=== PATIENT | female | born 1940 | race American Indian/Alaskan Native ===

== ENCOUNTER 2020-10-01 13:31 | Inpatient (IN) | payer MEDICARE ==
[2020-10-01 14:44] LABS: Basophils % (Auto) 0.8 % (0.0-1.8); Eosinophils # (Auto) 0.1 K/mm3 (0.0-0.4); Eosinophils % (Auto) 4.5 % (0.0-4.3); Hematocrit 38.4 % (30.3-42.9); Hemoglobin 13.4 gm/dl (10.1-14.3); Lymphocytes # (Auto) 1.3 K/mm3 (1.2-5.4); Lymphocytes % (Auto) 39.1 % (13.4-35.0); Mean Corpuscular HGB Conc 35 % (30-34); Mean Corpuscular Volume 95 fl (79-97); Monocytes # (Auto) 0.3 K/mm3 (0.0-0.8); Monocytes % (Auto) 8.8 % (0.0-7.3); Platelet Count 185 K/mm3 (140-440); Red Blood Count 4.05 M/mm3 (3.65-5.03); Red Cell Distribution Width 13.4 % (13.2-15.2)
[2020-10-01 14:47] LABS: Partial Thromboplastin Time 29.4 Sec. (24.2-36.6)
[2020-10-01 14:50] LABS: BUN/Creatinine Ratio 13; Blood Urea Nitrogen 10 mg/dL (7-17); Calcium 9.2 mg/dL (8.4-10.2); Hemolysis Index 5
--- NOTE | 2020-10-01 17:16 | Emergency Department Report ---
ED Neuro Deficit HPI - General Chief Complaint: Neuro Symptoms/Deficit Stated Complaint: SLURRED SPEECH/HEADACHE Time Seen by Provider: 10/01/20 16:58 Source: patient Mode of arrival: Ambulatory Limitations: No Limitations - History of Present Illness Initial Comments: Patient is 80 years old female with no significant past medical history according to the patient report. Patient brought by family member for evaluation of confusion since last night, unknown time of onset. Patient is alert and slightly confused but she is able to answer questions. Patient stated that she has been having a headache for the last few days. She also reported that she had a fall few weeks ago. Patient denied any focal weakness, numbness or tingling sensation. Patient also denied any speech abnormality. GCS is 14. -: unknown Location: speech Presenting Symptoms: Present: Altered Mental Status Associated Symptoms: confusion - Related Data Allergies/Adverse Reactions: Allergies Allergy/AdvReac Type Severity Reaction Status Date / Time No Known Allergies Allergy Verified 10/01/20 13:40 ED Review of Systems ROS: Stated complaint: SLURRED SPEECH/HEADACHE Other details as noted in HPI Comment: All other systems reviewed and negative Constitutional: denies: chills, fever Respiratory: denies: cough, shortness of breath, SOB with exertion, SOB at rest Cardiovascular: denies: chest pain, palpitations Gastrointestinal: nausea, vomiting. denies: abdominal pain Musculoskeletal: denies: back pain Neurological: headache. denies: weakness, numbness, paresthesias, confusion ED Neuro Physical Exam - General Limitations: No Limitations General appearance: alert, in no apparent distress Suspected Stroke: Yes - Head Head exam: Present: atraumatic, normocephalic, normal inspection - Eye Eye exam: Present: normal appearance, PERRL, EOMI - ENT ENT exam: Present: normal exam, normal orophraynx, mucous membranes moist - Neck Neck exam: Present: normal inspection, full ROM. Absent: tenderness, meningismus - Respiratory Respiratory exam: Present: normal lung sounds bilaterally - Cardiovascular Cardiovascular Exam: Present: regular rate, normal rhythm, normal heart sounds - GI/Abdominal GI/Abdominal exam: Present: soft, normal bowel sounds. Absent: distended, tenderness, guarding, rebound, rigid, organomegaly, mass, bruit, pulsatile mass, hernia - Extremities Exam Extremities exam: Present: normal inspection, full ROM, normal capillary refill. Absent: tenderness - Back Exam Back exam: Present: normal inspection, full ROM. Absent: CVA tenderness (R), CVA tenderness (L) - Neurological Exam Neurological exam: Present: alert, altered, CN II-XII intact, normal gait, reflexes normal. Absent: motor sensory deficit - NIHSS Assessment Interval: Baseline 1a. Level of Consciousness: alert/keenly responsive 1b. LOC Questions: answers both correctly 1c. LOC Commands: performs tasks correctly 2. Best Gaze: normal 3. Visual: no visual loss 4. Facial Palsy: normal symmetrical movement 5b. Motor Arm Right: no drift 5a. Motor Arm Left: no drift 6a. Motor Leg Left: no drift 6b. Motor Leg Right: no drift 7. Limb Ataxia: absent 8. Sensory: normal 9. Best Language: no aphasia 10. Dysarthria: normal 11. Extinction/Inattention: no abnormality Total Score: 0 Stroke Severity: No Stroke Symptoms - Psychiatric Psychiatric exam: Present: normal mood - Skin Skin exam: Present: warm, dry, intact, normal color ED Course Vital Signs 10/01/20 10/01/20 10/01/20 13:40 14:03 19:00 Temperature 97.6 F 98.5 F Pulse Rate 72 61 70 Respiratory 20 16 16 Rate Blood Pressure 149/76 157/76 Blood Pressure 136/66 [Right] O2 Sat by Pulse 97 99 Oximetry 10/01/20 10/01/20 10/01/20 19:32 19:34 19:38 Temperature 97.7 F Pulse Rate 72 Respiratory 16 16 Rate Blood Pressure 138/83 Blood Pressure 138/83 [Right] O2 Sat by Pulse 98 Oximetry 10/01/20 10/01/20 10/01/20 19:46 20:02 20:16 Temperature Pulse Rate 76 96 H 65 Respiratory 20 Rate Blood Pressure 143/120 146/66 131/66 Blood Pressure [Right] O2 Sat by Pulse Oximetry - Lab Data Result diagrams: 10/01/20 14:10 10/01/20 14:10 Lab Results 10/01/20 10/01/20 10/01/20 Range/Units 13:46 14:10 14:10 WBC 3.3 L (4.5-11.0) K/mm3 RBC 4.05 (3.65-5.03) M/mm3 Hgb 13.4 (10.1-14.3) gm/dl Hct 38.4 (30.3-42.9) % MCV 95 (79-97) fl MCH 33 H (28-32) pg MCHC 35 H (30-34) % RDW 13.4 (13.2-15.2) % Plt Count 185 (140-440) K/mm3 Lymph % (Auto) 39.1 H (13.4-35.0) % Craig % (Auto) 8.8 H (0.0-7.3) % Eos % (Auto) 4.5 H (0.0-4.3) % Baso % (Auto) 0.8 (0.0-1.8) % Lymph # (Auto) 1.3 (1.2-5.4) K/mm3 Craig # (Auto) 0.3 (0.0-0.8) K/mm3 Eos # (Auto) 0.1 (0.0-0.4) K/mm3 Baso # (Auto) 0.0 (0.0-0.1) K/mm3 Seg Neutrophils % 46.8 (40.0-70.0) % Seg Neutrophils # 1.5 L (1.8-7.7) K/mm3 PT 13.7 (12.2-14.9) Sec. INR 1.00 (0.87-1.13) APTT 29.4 (24.2-36.6) Sec. Thrombin Time (15.1-19.6) Sec. Sodium (137-145) mmol/L Potassium (3.6-5.0) mmol/L Chloride (98-107) mmol/L Carbon Dioxide (22-30) mmol/L Anion Gap mmol/L BUN (7-17) mg/dL Creatinine (0.6-1.2) mg/dL Estimated GFR ml/min BUN/Creatinine Ratio % Glucose (65-100) mg/dL POC Glucose 104 (70-105) mg/dL Calcium (8.4-10.2) mg/dL Troponin T (0.00-0.029) ng/mL 10/01/20 10/01/20 Range/Units 14:10 14:10 WBC (4.5-11.0) K/mm3 RBC (3.65-5.03) M/mm3 Hgb (10.1-14.3) gm/dl Hct (30.3-42.9) % MCV (79-97) fl MCH (28-32) pg MCHC (30-34) % RDW (13.2-15.2) % Plt Count (140-440) K/mm3 Lymph % (Auto) (13.4-35.0) % Craig % (Auto) (0.0-7.3) % Eos % (Auto) (0.0-4.3) % Baso % (Auto) (0.0-1.8) % Lymph # (Auto) (1.2-5.4) K/mm3 Craig # (Auto) (0.0-0.8) K/mm3 Eos # (Auto) (0.0-0.4) K/mm3 Baso # (Auto) (0.0-0.1) K/mm3 Seg Neutrophils % (40.0-70.0) % Seg Neutrophils # (1.8-7.7) K/mm3 PT (12.2-14.9) Sec. INR (0.87-1.13) APTT (24.2-36.6) Sec. Thrombin Time 17.7 (15.1-19.6) Sec. Sodium 142 (137-145) mmol/L Potassium 4.5 (3.6-5.0) mmol/L Chloride 105.1 (98-107) mmol/L Carbon Dioxide 28 (22-30) mmol/L Anion Gap 13 mmol/L BUN 10 (7-17) mg/dL Creatinine 0.8 (0.6-1.2) mg/dL Estimated GFR > 60 ml/min BUN/Creatinine Ratio 13 % Glucose 95 (65-100) mg/dL POC Glucose (70-105) mg/dL Calcium 9.2 (8.4-10.2) mg/dL Troponin T < 0.010 (0.00-0.029) ng/mL - EKG Data -: EKG Interpreted by Id EKG shows normal: sinus rhythm Rate: normal Interpretation: no acute changes - Radiology Data Radiology results: report reviewed - Medical Decision Making Patient is 80 years old female with no significant past medical history acc ording to the patient report. Patient brought by family member for evaluation of confusion since last night, unknown time of onset. Patient is alert and slightly confused but she is able to answer questions. Patient stated that she has been having a headache for the last few days. She also reported that she had a fall few weeks ago. Patient denied any focal weakness, numbness or tingling sensation. Patient also denied any speech abnormality. GCS is 14. Patient vital signs remained stable. CT brain showed a 1 cm time 1.5 cm intracerebral hemorrhage. I discussed the patient with Dr. Paulino Salazar, neurosurgeon on-call. He advised to admit the patient to ICU with neuro check every 2 hours. He advised to keep blood pressure less than 140 systolic. He also advised to repeat CT brain without contrast in 6-hour from the initial test and he will see the patient in the ICU. I discussed the patient with Dr. Lorenz, he agreed to admit the patient to medical service for further management. Critical Care Time: Yes Critical care time in (mins) excluding proc time.: 30 Critical care attestation.: If time is entered above; I have spent that time in minutes in the direct care of this critically ill patient, excluding procedure time. ED Disposition Clinical Impression: Intracerebral hemorrhage Disposition: 09 ADMITTED INPATIENT Is pt being admited?: Yes Condition: Stable Referrals: PRIMARY CARE, [Primary Care Provider] - 3-5 Days
--- NOTE | 2020-10-01 17:16 | Cat Scan Report ---
NONENHANCED CT SCAN OF THE HEAD: INDICATION / CLINICAL INFORMATION: 80 years Female; neuro deficits <6hrs or sx present upon awakening PT UNABLE TO GIVE HX. TECHNIQUE: Routine CT head without contrast. All CT scans at this location are performed using CT dos e reduction for ALARA by means of automated exposure control. COMPARISON: None. FINDINGS: BRAIN / INTRACRANIAL CONTENTS: Abnormal CT scan 1 cm (sagittal) by 1.5 cm (transverse and vertical) sized acute intracerebral hemorrhage in the later al left precentral gyrus with the surrounding vasogenic edema; Unlikely to be from hypertensive hemorrhage; diagnostic possibilities are amyloid angiopathy, peritum oral hemorrhage, hemorrhage from cortical venous thromboses Extensive periventricular confluent low-attenuation areas due to chronic small vessel disease; incide ntal left choroidal fissure cyst CRANIOCERVICAL JUNCTION: No significant abnormality. ORBITS: No significant abnormality of visualized orbits. SINUSES / MASTOIDS: No significant abnormality of the visualized paranasal sinuses or mastoid air nieves ls. ADDITIONAL FINDINGS: None. IMPRESSION: 1 cm x 1.5 cm sized intracerebral hemorrhage in the lateral left precentral gyrus with surrounding va sogenic edema CRITICAL RESULT: Time of Discovery (CORPORATE MANAGER/CDT): 4:09 PM Time of Communication (CORPORATE MANAGER/CDT): 4:11 PM Licensed Practitioner Receiving Report: ER physician Read-Back Performed: Yes. Signer Name: Chayito Orourke MD Signed: 10/01/2020 5:11 PM Workstation Name: [id number]
--- NOTE | 2020-10-01 18:31 | Cat Scan Report ---
CTA HEAD WITH CONTRAST HISTORY: Focal hemorrhage in the lateral left precentral gyrus COMPARISON: None. TECHNIQUE: Routine non-contrast CT Head, CTA of the head and post-contrast CT Head are performed. 3-D /MIP reformats postprocessed. All CT scans at this location are performed using CT dose reduction for ALARA by means of automated exposure control CONTRAST: 100 ml of Omnipaque 350 FINDINGS: CTA Head: Intracranial vertebral arteries: No significant abnormality. Basilar artery: No significant abnormality. Posterior cerebral arteries: No significant abnormality. Intracranial internal carotid arteries: No significant abnormality. Anterior cerebral arteries: No significant abnormality. Middle cerebral arteries: No significant abnormality. Intracerebral hemorrhage in the left lateral precentral gyrus: No adjacent prominent arteries are fee ding remains; this would exclude underlying arteriovenous malformation Dural venous sinuses:Not optimally opacified. No significant abnormality. Additional findings: Empty sella IMPRESSION: 1. [place] and middle cerebral artery trifurcation normal No arterial feeders are prominent venous drainage from the left lateral frontal intracerebral hemorrh age Signer Name: Chayito Orourke MD Signed: 10/01/2020 6:26 PM Workstation Name: [id number]
[2020-10-01] MEDS ORDERED: PROMETHAZINE 25 MG RECT SUPP PR PRN (22:27)
[2020-10-01] MEDS ORDERED: ACETAMINOPHEN 325 MG TAB PO PRN ×2 (22:27)
[2020-10-01] MEDS ORDERED: ONDANSETRON 4 MG/2 ML INJ IV PRN (22:27)
[2020-10-01] MEDS ORDERED: ACETAMINOPHEN 650 MG RECT SUPP PR PRN (22:27)
[2020-10-01] MEDS ORDERED: MORPHINE 4 MG/1 ML INJ IV PRN ×2 (22:27)
[2020-10-01] MEDS ORDERED: MAGNESIUM HYDROXIDE (MOM) ORAL LIQD UDC PO PRN ×2 (22:27)
[2020-10-01] MEDS ORDERED: MORPHINE 2 MG/1 ML INJ IV PRN ×2 (22:27)
[2020-10-01] MEDS ORDERED: ALUM-MAG HYDROXIDE-SIMETHICONE 200-200-20MG/5ML ORAL LIQD 30 ML PO PRN (22:27)
--- NOTE | 2020-10-01 22:51 | History and Physical Report ---
History of Present Illness Date of examination: 10/01/20 Date of admission: 10/01/20 21:37 Chief complaint: Confusion Headache History of present illness: 80-year-old -[place] female with no significant past medical history brought in by family today for evaluation of confusion which started last night. Patient states that she has been having headache over the past few days. She denies any blurry vision, no nausea vomiting, no abdominal pain, no diaphoresis. Patient denies any fever or chills, denies any neck pain. She denies any difficulty with speech or swallowing. Denies any difficulty with gait. She denies any sick contacts and no recent travel. Denies any contact with anyone with COVID-19. Work-up in the emergency room today, CT scan of the head reveals a 1 cm x 1.5 cm sized intracerebral hemorrhage in the lateral left precentral gyrus with surrounding vasogenic edema. CTA of the head was essentially within normal limits. Neurosurgeon Dr. Jeffries has been consulted by the ER physician. Repeat CT scan of the head has been requested and patient will be followed up by the neurosurgeon. Past History Past Medical History: No medical history Past Surgical History: No surgical history Social history: no significant social history Family history: no significant family history Medications and Allergies Allergies Allergy/AdvReac Type Severity Reaction Status Date / Time No Known Allergies Allergy Verified 10/01/20 13:40 Active Meds: Active Medications Acetaminophen (Acetaminophen 325 Mg Tab) 650 mg PO Q4H PRN PRN Reason: Pain, Mild (1-3) Acetaminophen (Acetaminophen 650 Mg Rect Supp) 650 mg IA Q4H PRN PRN Reason: Pain, Mild (1-3) Acetaminophen (Acetaminophen 325 Mg Tab) 650 mg PO Q6H PRN PRN Reason: Pain MILD(1-3)/Fever >100.5/BULLARD Al Hydrox/Mg Hydrox/Simethicone (Alum-Mag Hydroxide-Simethicone [phone]/5ml Oral Liqd 30 Ml) 30 ml PO Q4H PRN PRN Reason: Indigestion Bisacodyl (Bisacodyl 10 Mg Rect Supp) 10 mg IA QDAY PRN PRN Reason: Constipation unrelieved by MOM Magnesium Hydroxide (Magnesium Hydroxide (Mom) Oral Liqd Udc) 30 ml PO Q4H PRN PRN Reason: Constipation Magnesium Hydroxide (Magnesium Hydroxide (Mom) Oral Liqd Udc) 30 ml PO Q4H PRN PRN Reason: Constipation Morphine Sulfate (Morphine 2 Mg/1 Ml Inj) 2 mg IV Q4H PRN PRN Reason: Pain, Moderate (4-6) Morphine Sulfate (Morphine 4 Mg/1 Ml Inj) 4 mg IV Q4H PRN PRN Reason: Pain , Severe (7-10) Morphine Sulfate (Morphine 2 Mg/1 Ml Inj) 2 mg IV Q4H PRN PRN Reason: Pain, Moderate (4-6) Morphine Sulfate (Morphine 4 Mg/1 Ml Inj) 4 mg IV Q4H PRN PRN Reason: Pain , Severe (7-10) Ondansetron HCl (Ondansetron 4 Mg/2 Ml Inj) 4 mg IV Q8H PRN PRN Reason: N/V unrelieved by Reglan Promethazine HCl (Promethazine 25 Mg Rect Supp) 25 mg IA Q6H PRN PRN Reason: Nausea And Vomiting Sodium Chloride (Sodium Chloride 0.9% 10 Ml Flush Syringe) 10 ml IV BID NATASHA Sodium Chloride (Sodium Chloride 0.9% 10 Ml Flush Syringe) 10 ml IV PRN PRN PRN Reason: LINE FLUSH Review of Systems Constitutional: no fever, no chills Ears, nose, mouth and throat: no nasal congestion, no sore throat Cardiovascular: no chest pain, no palpitations Respiratory: no cough, no shortness of breath, no wheezing Gastrointestinal: no abdominal pain, no nausea, no vomiting, no diarrhea Genitourinary Female: no flank pain, no dysuria, no hematuria Musculoskeletal: no neck pain, no low back pain Integumentary: no rash, no pruritis Neurological: no headaches, no confusion Psychiatric: no anxiety, no depression Endocrine: no polyphagia, no polydipsia, no polyuria, no nocturia Exam - Constitutional Vitals: Temp Pulse Resp BP Pulse Ox 97.7 F 66 13 126/63 98 10/01/20 19:34 10/01/20 22:30 10/01/20 22:30 10/01/20 22:30 10/01/20 19:38 General appearance: Present: no acute distress, well-nourished - EENT Eyes: Present: PERRL, EOM intact. Absent: scleral icterus ENT: hearing intact, clear oral mucosa, dentition normal - Neck Neck: Present: supple, normal ROM - Respiratory Respiratory effort: normal Respiratory: bilateral: CTA - Cardiovascular Rhythm: regular Heart Sounds: Present: S1 & S2. Absent: gallop, systolic murmur, diastolic murmur, rub, click - Extremities Extremities: no ischemia, pulses intact, pulses symmetrical, No edema, normal temperature, normal color, Full ROM Peripheral Pulses: within normal limits - Abdominal General gastrointestinal: Present: soft, non-tender, non-distended, normal bowel sounds. Absent: mass - Integumentary Integumentary: Present: clear, warm, dry, normal turgor. Absent: rash - Musculoskeletal Musculoskeletal: strength equal bilaterally - Psychiatric Psychiatric: appropriate mood/affect, intact judgment & insight, memory intact, cooperative - Neurologic Neurologic: CNII-XII intact, no focal deficits, moves all extremities HEART Score - HEART Score Troponin: Troponin T < 0.010 ng/mL (0.00-0.029) 10/01/20 14:10 Results - Labs CBC & Chem 7: 10/01/20 14:10 10/01/20 14:10 Labs: Abnormal lab results 10/01/20 Range/Units 14:10 WBC 3.3 L (4.5-11.0) K/mm3 MCH 33 H (28-32) pg MCHC 35 H (30-34) % Lymph % (Auto) 39.1 H (13.4-35.0) % Casey % (Auto) 8.8 H (0.0-7.3) % Eos % (Auto) 4.5 H (0.0-4.3) % Seg Neutrophils # 1.5 L (1.8-7.7) K/mm3 Assessment and Plan - Patient Problems (1) Intracerebral hemorrhage Current Visit: Yes Status: Acute Plan to address problem: Patient admitted into the intensive care unit. Neurochecks will be done every 2 hourly We will monitor blood pressure closely. Blood pressure systolic to be less than 140 mmHg. Patient will be followed up by neurosurgeon Dr. Jeffries. We will also appreciate neurology input. (2) DVT prophylaxis Current Visit: Yes Status: Acute Plan to address problem: Patient placed on sequential compression device. (3) Full code status Current Visit: Yes Status: Acute Plan to address problem: Patient is a full code.
[2020-10-02 06:50] LABS: Basophils % (Auto) 0.8 % (0.0-1.8); Eosinophils # (Auto) 0.2 K/mm3 (0.0-0.4); Hematocrit 37.9 % (30.3-42.9); Hemoglobin 13.1 gm/dl (10.1-14.3); Lymphocytes # (Auto) 1.3 K/mm3 (1.2-5.4); Lymphocytes % (Auto) 43.1 % (13.4-35.0); Mean Corpuscular HGB Conc 35 % (30-34); Mean Corpuscular Volume 95 fl (79-97); Monocytes # (Auto) 0.4 K/mm3 (0.0-0.8); Monocytes % (Auto) 11.9 % (0.0-7.3); Platelet Count 174 K/mm3 (140-440); Red Blood Count 4.01 M/mm3 (3.65-5.03); Red Cell Distribution Width 13.4 % (13.2-15.2)
[2020-10-02 06:58] LABS: INR 1.01 (0.87-1.13)
[2020-10-02 07:00] LABS: BUN/Creatinine Ratio 10; Blood Urea Nitrogen 8 mg/dL (7-17); Calcium 9.2 mg/dL (8.4-10.2); Hemolysis Index 2
--- NOTE | 2020-10-02 08:44 | Cat Scan Report ---
CT BRAIN: 10/02/2020 INDICATION / CLINICAL INFORMATION: INTRACEREBRAL BLEED- FOLLOW UP. COMPARISON: CT brain 10/01/2020 FINDINGS: BRAIN/INTRACRANIAL STRUCTURES: Unenhanced CT images of the brain were obtained and compared to the pr ior exam from 10/01/2020. There is been no change. Again seen is the area of sulcal hyperdensity in the high left frontal region, unchanged in appearanc e and extent. Underlying age-related atrophic changes and chronic white matter hypoattenuation is also again noted. There is no evidence of additional hemorrhage or mass. EXTRACRANIAL STRUCTURES: Unremarkable. IMPRESSION: No change when compared to 10/01/2020. All CT scans at this location are performed using dose reduction to ALARA by means of automated expos ure control. Signer Name: Dewayne Bernabe MD Signed: 10/02/2020 8:39 AM Workstation Name: [id number]
[2020-10-02] MEDS ORDERED: SENNOSIDES 8.6 MG TAB PO PRN (08:58)
[2020-10-02] MEDS ORDERED: DEXTROSE 50% IN WATER (25GM) 50 ML SYRINGE IV PRN (09:03)
[2020-10-02 11:25] LABS: Chol/HDL Ratio 2.13 %
--- NOTE | 2020-10-02 15:01 | Vascular Lab Report ---
VL carotid duplex BILAT INDICATION / CLINICAL INFORMATION: CVA COMPARISON: None available. FINDINGS: RIGHT CAROTID: - CCA velocity: 140 cm/sec. This was taken in a region of tortuosity and could be artifactual. - ICA peak systolic velocity: 82 cm/sec. - ICA/CCA PSV Ratio: Less than 2 Right Vertebral Artery: Antegrade flow. LEFT CAROTID: - CCA velocity: 122 cm/sec. - ICA peak systolic velocity: 84 cm/sec. - ICA/CCA PSV Ratio: Less than 2 Left Vertebral Artery: Antegrade flow. IMPRESSION: 1. No occlusion or hemodynamically significant stenosis of the bilateral carotid arteries. Velocity criteria are extrapolated from diameter data as defined by the Society of Radiologists in Ul trasound Consensus Conference, Radiology 2003; 229;340-346. NO STENOSIS (NORMAL) * Plaque = none; ICA PSV < 125 cm/sec; ICA/CCA PSV Ratio < 2.0 <50% STENOSIS * Plaque < 50%; ICA PSV < 125 cm/sec; ICA/CCA PSV Ratio < 2.0 50-69% STENOSIS * Plaque > 50%; ICA PSV = 125-230 cm/sec; ICA/CCA PSV Ratio = 2.0-4.0 >70% BUT <100% STENOSIS * Plaque > 50%; ICA PSV > 230 cm/sec; ICA/CCA PSV Ratio > 4.0 NEAR OCCLUSION * Plaque = visible lumen; ICA PSV = high/low/none; ICA/CCA PSV Ratio = variable TOTAL OCCLUSION * Plaque = no lumen; ICA PSV = none; ICA/CCA PSV Ratio = N/A Signer Name: Cameron Glass MD Signed: 10/02/2020 2:57 PM Workstation Name: [id number]
--- NOTE | 2020-10-02 17:26 | Consultation ---
History of Present Illness Consult date: 10/02/20 Reason for Consult: Intracerebral hemorrhage Chief complaint: headache History of present illness: Reggie Bear is a 80 y/o Female admitted to [facility] on yesterday for management of a newly discovered left intracerebral hemorrhage. She reportedly fell while walking in her yard (according to her). CT scan revealed a left frontal intraparenchymal hemorrhage. Follow up CTA was negative for vascular malformation. Presently, she denies significant headaches, nausea or vomiting. She is mostly interested in finding a phone right now. She is currently awaiting an inpatient bed. Past History Past Medical History: No medical history Past Surgical History: No surgical history Social history: no significant social history Family history: no significant family history Medications and Allergies Allergies Allergy/AdvReac Type Severity Reaction Status Date / Time No Known Allergies Allergy Verified 10/01/20 13:40 Active Meds: Active Medications Acetaminophen (Acetaminophen 650 Mg Rect Supp) 650 mg ID Q4H PRN PRN Reason: Pain, Mild (1-3) Acetaminophen (Acetaminophen 325 Mg Tab) 650 mg PO Q6H PRN PRN Reason: Pain MILD(1-3)/Fever >100.5/[place] Al Hydrox/Mg Hydrox/Simethicone (Alum-Mag Hydroxide-Simethicone [phone]/5ml Oral Liqd 30 Ml) 30 ml PO Q4H PRN PRN Reason: Indigestion Bisacodyl (Bisacodyl 10 Mg Rect Supp) 10 mg ID QDAY PRN PRN Reason: Constipation unrelieved by MOM Dextrose (Dextrose 50% In Water (25gm) 50 Ml Syringe) 50 ml IV Q30MIN PRN; Protocol PRN Reason: Hypoglycemia Magnesium Hydroxide (Magnesium Hydroxide (Mom) Oral Liqd Udc) 30 ml PO Q4H PRN PRN Reason: Constipation Morphine Sulfate (Morphine 4 Mg/1 Ml Inj) 4 mg IV Q4H PRN PRN Reason: Pain , Severe (7-10) Morphine Sulfate (Morphine 2 Mg/1 Ml Inj) 2 mg IV Q4H PRN PRN Reason: Pain, Moderate (4-6) Ondansetron HCl (Ondansetron 4 Mg/2 Ml Inj) 4 mg IV Q8H PRN PRN Reason: N/V unrelieved by Reglan Promethazine HCl (Promethazine 25 Mg Rect Supp) 25 mg ID Q6H PRN PRN Reason: Nausea And Vomiting Senna (Sennosides 8.6 Mg Tab) 8.6 mg PO Q12H PRN PRN Reason: Laxative Effect Sodium Chloride (Sodium Chloride 0.9% 10 Ml Flush Syringe) 10 ml IV BID NATASHA Sodium Chloride (Sodium Chloride 0.9% 10 Ml Flush Syringe) 10 ml IV PRN PRN PRN Reason: LINE FLUSH Review of Systems All systems: negative (what is specified in HPI) Physical Examination - Vital Signs Vital Signs: Vital Signs Temp Pulse Resp BP Pulse Ox 97.6 F 72 20 149/76 97 10/01/20 13:40 10/01/20 13:40 10/01/20 13:40 10/01/20 13:40 10/01/20 13:40 - Physical Exam Narrative exam: seen and examined no acute distress NC/AT RRR breathing non-labored abdomen soft no cyanosis or clubbing A&Ox3 CNII-XII intact speech fluent motor strength full throughout sensation intact no pronator drift reflexes +2 non-tender to palpation of left frontal scalp gait assessment deferred Results - Laboratory Findings CBC and BMP: 10/02/20 05:12 10/02/20 05:12 Abnormal Lab Findings: Abnormal Labs 10/01/20 10/02/20 10/02/20 14:10 05:12 10:11 WBC 3.3 L 3.1 L MCH 33 H 33 H MCHC 35 H 35 H Lymph % (Auto) 39.1 H 43.1 H [place] % (Auto) 8.8 H 11.9 H Eos % (Auto) 4.5 H 8.0 H Seg Neutrophils % 36.2 L Seg Neutrophils # 1.5 L 1.1 L HDL Cholesterol 90 H Assessment and Plan 80 y/o F w/ left frontal intraparenchymal hemorrhage, repeat scan stable -no indication for surgical intervention -recommend MRI brain non-contrast -maintain SBP < 140 -q4h neuro checks -PT/OT/ST -further recs pending MRI review -please notify if questions
[2020-10-02] MEDS ORDERED: hydrALAZINE 20 MG/1 ML INJ IV PRN (22:03)
--- NOTE | 2020-10-02 22:06 | Progress Note ---
<KIRT GALLARDONiecy - Last Filed: 10/02/20 22:04> Assessment and Plan Assessment and plan: 80-year-old female admitted with intracranial hemorrhage Neuro: Left frontal intraparenchymal hemorrhage -Neurosurgery and Neurology consulted, appreciate recommendations -No need for surgical intervention per neurosurgery -MRI brain without contrast pending -Maintain systolic blood pressure less than 140 -Every 4 neurochecks -PT/OT/ST consulted, appreciate recommendations -Fall/aspiration precautions -Carotid Doppler ultrasound completed-> see results -CTA head completed-> shows no vascular malformation per neurosurgery Cardiology: NAD -SR on monitor, maintaining blood pressure per parameters -Maintain systolic blood pressure less than 140 per neurosurgery recommendations -As needed hydralazine -Blood pressure monitoring per protocol Respiratory: NAD -Currently on room air -Pulmonary hygiene -Supplemental oxygen as needed -SPO2 monitoring GI: Cardiac diet -BR Senokot -As needed Maalox and Dulcolax -No indication for PPI -No intake/output recorded : NAD -Voiding Endo: NAD -Accu-Cheks every 4 for 24 hours -Avoid hypoglycemia Heme: Leukopenia -Trend CBC -Transfuse for hemoglobin less than 7 -SCDs to bilateral lower extremity while in bed -Avoid chemical anticoagulation in setting of ICH ID: NAD -Monitor CBC and fever curve -Monitor for signs and symptoms of infection The high probability of a clinically significant, sudden or life threatening deterioration of the [neuro] system(s) required my full and direct attention, intervention and personal management. The aggregate critical care time was [60] minutes. This time is in addition to time spent performing reported procedures but includes the following: [x] Data Review and interpretation [x] Patient assessment and monitoring of vital signs [x] Documentation [x] Medication orders and management Disposition Plan: transfer to floor Total Time Spent with Patient (Minutes): 60 History Interval history: This is a 80-year-old female with no significant past medical history as the patient sees a naturopathic physician who presented to the emergency department on 10/01 for confusion, self-reported headache over the past few days and fall couple weeks ago. Work-up in the emergency department included CT head which revealed intracerebral hemorrhage in the left lateral presence of gyrus with surrounding vasogenic edema and neurosurgery was consulted. Patient admitted to the hospitalist service with intracranial hemorrhage with consults to valeria rosurgery. 10/02: Patient was sedated to go to ICU however a repeat CT head obtained per neurosurgery request showed no significant interval change. Patient is on every 4 neurochecks per neurosurgery. She will be downgraded to telemetry. Hospitalist Physical - Constitutional Vitals: Temp Pulse Resp BP Pulse Ox 98.3 F 71 12 119/65 97 10/02/20 19:35 10/02/20 19:35 10/02/20 19:35 10/02/20 19:35 10/02/20 19:35 General appearance: Present: no acute distress, well-nourished HEART Score - HEART Score Troponin: Troponin T < 0.010 ng/mL (0.00-0.029) 10/01/20 14:10 Results - Labs CBC & Chem 7: 10/02/20 05:12 10/02/20 05:12 Labs: Laboratory Last Values WBC 3.1 K/mm3 (4.5-11.0) L 10/02/20 05:12 RBC 4.01 M/mm3 (3.65-5.03) 10/02/20 05:12 Hgb 13.1 gm/dl (10.1-14.3) 10/02/20 05:12 Hct 37.9 % (30.3-42.9) 10/02/20 05:12 MCV 95 fl (79-97) 10/02/20 05:12 MCH 33 pg (28-32) H 10/02/20 05:12 MCHC 35 % (30-34) H 10/02/20 05:12 RDW 13.4 % (13.2-15.2) 10/02/20 05:12 Plt Count 174 K/mm3 (140-440) 10/02/20 05:12 Lymph % (Auto) 43.1 % (13.4-35.0) H 10/02/20 05:12 [place] % (Auto) 11.9 % (0.0-7.3) H 10/02/20 05:12 Eos % (Auto) 8.0 % (0.0-4.3) H 10/02/20 05:12 Baso % (Auto) 0.8 % (0.0-1.8) 10/02/20 05:12 Lymph # (Auto) 1.3 K/mm3 (1.2-5.4) 10/02/20 05:12 [place] # (Auto) 0.4 K/mm3 (0.0-0.8) 10/02/20 05:12 Eos # (Auto) 0.2 K/mm3 (0.0-0.4) 10/02/20 05:12 Baso # (Auto) 0.0 K/mm3 (0.0-0.1) 10/02/20 05:12 Seg Neutrophils % 36.2 % (40.0-70.0) L 10/02/20 05:12 Seg Neutrophils # 1.1 K/mm3 (1.8-7.7) L 10/02/20 05:12 PT 13.8 Sec. (12.2-14.9) 10/02/20 05:12 INR 1.01 (0.87-1.13) 10/02/20 05:12 APTT 29.4 Sec. (24.2-36.6) 10/01/20 14:10 Thrombin Time 17.7 Sec. (15.1-19.6) 10/01/20 14:10 Sodium 142 mmol/L (137-145) 10/02/20 05:12 Potassium 4.7 mmol/L (3.6-5.0) 10/02/20 05:12 Chloride 104.4 mmol/L (98-107) 10/02/20 05:12 Carbon Dioxide 29 mmol/L (22-30) 10/02/20 05:12 Anion Gap 13 mmol/L 10/02/20 05:12 BUN 8 mg/dL (7-17) 10/02/20 05:12 Creatinine 0.8 mg/dL (0.6-1.2) 10/02/20 05:12 Estimated GFR > 60 ml/min 10/02/20 05:12 BUN/Creatinine Ratio 10 % 10/02/20 05:12 Glucose 88 mg/dL (65-100) 10/02/20 05:12 POC Glucose 104 mg/dL (70-105) 10/01/20 13:46 Hemoglobin A1c 5.6 % (4-6) 10/02/20 10:11 Calcium 9.2 mg/dL (8.4-10.2) 10/02/20 05:12 Troponin T < 0.010 ng/mL (0.00-0.029) 10/01/20 14:10 Triglycerides 62 mg/dL (2-149) 10/02/20 10:11 Cholesterol 192 mg/dL (50-199) 10/02/20 10:11 LDL Cholesterol Direct 105 mg/dL (50-130) 10/02/20 10:11 HDL Cholesterol 90 mg/dL (40-59) H 10/02/20 10:11 Cholesterol/HDL Ratio 2.13 % 10/02/20 10:11 Active Medications - Current Medications Current Medications: Generic Name Dose Route Start Last Admin Trade Name Freq PRN Reason Stop Dose Admin Acetaminophen 650 mg 10/01/20 22:27 Acetaminophen 650 Mg Rect Supp [place] Q4H PRN Pain, Mild (1-3) Acetaminophen 650 mg 10/01/20 22:27 Acetaminophen 325 Mg Tab PO Q6H PRN Pain MILD(1-3)/Fever >100.5/BULLARD Al Hydrox/Mg Hydrox/Simethicone 30 ml 10/01/20 22:27 Alum-Mag Hydroxide-Simethicone [phone]/5ml Oral Liqd 30 Ml PO Q4H PRN Indigestion Bisacodyl 10 mg 10/01/20 22:27 Bisacodyl 10 Mg Rect Supp W[place] QDAY PRN Constipation unrelieved by MOM Dextrose 50 ml 10/02/20 09:03 Dextrose 50% In Water (25gm) 50 Ml Syringe IV Q30MIN PRN Hypoglycemia Protocol Magnesium Hydroxide 30 ml 10/01/20 22:27 Magnesium Hydroxide (Mom) Oral Liqd Udc PO Q4H PRN Constipation Morphine Sulfate 4 mg 10/01/20 22:27 Morphine 4 Mg/1 Ml Inj IV Q4H PRN Pain , Severe (7-10) Morphine Sulfate 2 mg 10/01/20 22:27 Morphine 2 Mg/1 Ml Inj IV Q4H PRN Pain, Moderate (4-6) Ondansetron HCl 4 mg 10/01/20 22:27 Ondansetron 4 Mg/2 Ml Inj IV Q8H PRN N/V unrelieved by Reglan Promethazine HCl 25 mg 10/01/20 22:27 Promethazine 25 Mg Rect Supp [place] Q6H PRN Nausea And Vomiting Senna 8.6 mg 10/02/20 08:58 Sennosides 8.6 Mg Tab PO Q12H PRN Laxative Effect Sodium Chloride 10 ml 10/02/20 10:00 10/02/20 10:00 Sodium Chloride 0.9% 10 Ml Flush Syringe IV 10 ml BID NATASHA Administration Sodium Chloride 10 ml 10/01/20 22:27 Sodium Chloride 0.9% 10 Ml Flush Syringe IV PRN PRN LINE FLUSH Nutrition/Malnutrition Assess - Dietary Evaluation Nutrition/Malnutrition Findings: Nutrition Notes Start: 10/02/20 10:57 Freq: Status: Active Protocol: Document 10/02/20 10:57 (Rec: 10/02/20 10:59 [id number]) Nutrition Notes Need for Assessment generated from: MD Order Initial or Follow up Brief Note Other Pertinent Diagnosis intracerebral hemorrhage Subjective/Other Information All labs and BP WNL. No indication for diet education. Nutrition Intervention Revisit per MD consult or patient Sign Off request: Additional Comments Please reconsult if needed <JENN PATEL R - Last Filed: 10/03/20 16:35> Assessment and Plan Assessment and plan: I saw and evaluated the patient on 10/02/20. This patient was admitted to the hospital with the complaint of intracranial hemorrhage: The patient was seen in conjunction with ASSISTANT GOLF PROFESSIONAL. I have independently interviewed and examined the patient and reviewed pertinent historical, laboratory, and other data. Please refer to ASSISTANT GOLF PROFESSIONAL's note for details of this patient's presentation, findings, and recommendations. I have reviewed ASSISTANT GOLF PROFESSIONAL's note and concur fully with documented findings. I have discussed the results of my overview and impressions with the patient and/or appropriate family. Hospitalist Physical - Constitutional Vitals: Temp Pulse Resp BP Pulse Ox 98.4 F 64 19 144/71 99 10/03/20 07:53 10/03/20 14:28 10/03/20 14:28 10/03/20 14:28 10/03/20 14:28 HEART Score - HEART Score Troponin: Troponin T < 0.010 ng/mL (0.00-0.029) 10/01/20 14:10 Results - Labs CBC & Chem 7: 10/03/20 05:13 10/03/20 05:13 Labs: Laboratory Last Values WBC 3.1 K/mm3 (4.5-11.0) L 10/03/20 05:13 RBC 3.93 M/mm3 (3.65-5.03) 10/03/20 05:13 Hgb 13.0 gm/dl (10.1-14.3) 10/03/20 05:13 Hct 37.2 % (30.3-42.9) 10/03/20 05:13 MCV 95 fl (79-97) 10/03/20 05:13 MCH 33 pg (28-32) H 10/03/20 05:13 MCHC 35 % (30-34) H 10/03/20 05:13 RDW 13.0 % (13.2-15.2) L 10/03/20 05:13 Plt Count 164 K/mm3 (140-440) 10/03/20 05:13 Lymph % (Auto) 43.1 % (13.4-35.0) H 10/02/20 05:12 [place] % (Auto) 11.9 % (0.0-7.3) H 10/02/20 05:12 Eos % (Auto) 8.0 % (0.0-4.3) H 10/02/20 05:12 Baso % (Auto) 0.8 % (0.0-1.8) 10/02/20 05:12 Lymph # (Auto) 1.3 K/mm3 (1.2-5.4) 10/02/20 05:12 [place] # (Auto) 0.4 K/mm3 (0.0-0.8) 10/02/20 05:12 Eos # (Auto) 0.2 K/mm3 (0.0-0.4) 10/02/20 05:12 Baso # (Auto) 0.0 K/mm3 (0.0-0.1) 10/02/20 05:12 Seg Neutrophils % 36.2 % (40.0-70.0) L 10/02/20 05:12 Seg Neutrophils # 1.1 K/mm3 (1.8-7.7) L 10/02/20 05:12 PT 13.8 Sec. (12.2-14.9) 10/02/20 05:12 INR 1.01 (0.87-1.13) 10/02/20 05:12 APTT 29.4 Sec. (24.2-36.6) 10/01/20 14:10 Thrombin Time 17.7 Sec. (15.1-19.6) 10/01/20 14:10 Sodium 140 mmol/L (137-145) 10/03/20 05:13 Potassium 4.7 mmol/L (3.6-5.0) 10/03/20 05:13 Chloride 104.8 mmol/L (98-107) 10/03/20 05:13 Carbon Dioxide 29 mmol/L (22-30) 10/03/20 05:13 Anion Gap 11 mmol/L 10/03/20 05:13 BUN 10 mg/dL (7-17) 10/03/20 05:13 Creatinine 0.7 mg/dL (0.6-1.2) 10/03/20 05:13 Estimated GFR > 60 ml/min 10/03/20 05:13 BUN/Creatinine Ratio 14 % 10/03/20 05:13 Glucose 99 mg/dL (65-100) 10/03/20 05:13 POC Glucose 104 mg/dL (70-105) 10/01/20 13:46 Hemoglobin A1c 5.6 % (4-6) 10/02/20 10:11 Calcium 9.4 mg/dL (8.4-10.2) 10/03/20 05:13 Troponin T < 0.010 ng/mL (0.00-0.029) 10/01/20 14:10 Triglycerides 62 mg/dL (2-149) 10/02/20 10:11 Cholesterol 192 mg/dL (50-199) 10/02/20 10:11 LDL Cholesterol Direct 105 mg/dL (50-130) 10/02/20 10:11 HDL Cholesterol 90 mg/dL (40-59) H 10/02/20 10:11 Cholesterol/HDL Ratio 2.13 % 10/02/20 10:11 Active Medications - Current Medications Current Medications: Generic Name Dose Route Start Last Admin Trade Name Freq PRN Reason Stop Dose Admin Acetaminophen 650 mg 10/01/20 22:27 Acetaminophen 650 Mg Rect Supp WY Q4H PRN Pain, Mild (1-3) Acetaminophen 650 mg 10/01/20 22:27 Acetaminophen 325 Mg Tab PO Q6H PRN Pain MILD(1-3)/Fever >100.5/BULLARD Al Hydrox/Mg Hydrox/Simethicone 30 ml 10/01/20 22:27 Alum-Mag Hydroxide-Simethicone [phone]/5ml Oral Liqd 30 Ml PO Q4H PRN Indigestion Atorvastatin Calcium 40 mg 10/03/20 22:00 Atorvastatin 40 Mg Tab PO QHS NATASHA Bisacodyl 10 mg 10/01/20 22:27 Bisacodyl 10 Mg Rect Supp WY QDAY PRN Constipation unrelieved by MOM Dextrose 50 ml 10/02/20 09:03 Dextrose 50% In Water (25gm) 50 Ml Syringe IV Q30MIN PRN Hypoglycemia Protocol Hydralazine HCl 10 mg 10/02/20 22:03 Hydralazine 20 Mg/1 Ml Inj IV Q4H PRN Hypertension Levetiracetam 250 mg 10/03/20 22:00 Levetiracetam 500 Mg Tab PO BID NATASHA Magnesium Hydroxide 30 ml 10/01/20 22:27 Magnesium Hydroxide (Mom) Oral Liqd Udc PO Q4H PRN Constipation Morphine Sulfate 4 mg 10/01/20 22:27 Morphine 4 Mg/1 Ml Inj IV Q4H PRN Pain , Severe (7-10) Morphine Sulfate 2 mg 10/01/20 22:27 10/03/20 00:23 Morphine 2 Mg/1 Ml Inj IV 2 mg Q4H PRN Administration Pain, Moderate (4-6) Ondansetron HCl 4 mg 10/01/20 22:27 10/03/20 00:23 Ondansetron 4 Mg/2 Ml Inj IV 4 mg Q8H PRN Administration N/V unrelieved by Reglan Promethazine HCl 25 mg 10/01/20 22:27 Promethazine 25 Mg Rect Supp WY Q6H PRN Nausea And Vomiting Senna 8.6 mg 10/02/20 08:58 Sennosides 8.6 Mg Tab PO Q12H PRN Laxative Effect Sodium Chloride 10 ml 10/02/20 10:00 10/03/20 10:17 Sodium Chloride 0.9% 10 Ml Flush Syringe IV 10 ml BID NATASHA Administration Sodium Chloride 10 ml 10/01/20 22:27 Sodium Chloride 0.9% 10 Ml Flush Syringe IV PRN PRN LINE FLUSH Nutrition/Malnutrition Assess - Dietary Evaluation Nutrition/Malnutrition Findings: Nutrition Notes Start: 10/02/20 10:57 Freq: Status: Active Protocol: Document 10/02/20 10:57 MK (Rec: 10/02/20 10:59 JO [id number]) Nutrition Notes Need for Assessment generated from: MD Order Initial or Follow up Brief Note Other Pertinent Diagnosis intracerebral hemorrhage Subjective/Other Information All labs and BP WNL. No indication for diet education. Nutrition Intervention Revisit per MD consult or patient Sign Off request: Additional Comments Please reconsult if needed
[2020-10-03 05:50] LABS: Hematocrit 37.2 % (30.3-42.9); Mean Corpuscular HGB Conc 35 % (30-34); Mean Corpuscular Volume 95 fl (79-97); Platelet Count 164 K/mm3 (140-440); Red Blood Count 3.93 M/mm3 (3.65-5.03)
[2020-10-03 06:04] LABS: Blood Urea Nitrogen 10 mg/dL (7-17); Calcium 9.4 mg/dL (8.4-10.2); Hemolysis Index 3
[2020-10-03 06:09] LABS: BUN/Creatinine Ratio 14
[2020-10-03 14:29] VITALS: BP 144/71
--- NOTE | 2020-10-03 15:23 | Consultation ---
History of Present Illness Consult date: 10/02/20 Chief complaint: Reggie Bear is a 80 y/o Female admitted to [facility] on yesterday for management of a newly discovered left intracerebral hemorrhage. She reportedly fell while walking in her yard (according to her). CT scan revealed a left frontal intraparenchymal hemorrhage. Follow up CTA was negative for vascular malformation. Presently, she denies significant headaches, nausea or vomiting. Stable in the last 24 hours . Past History Past Medical History: No medical history Past Surgical History: No surgical history Social history: no significant social history Family history: no significant family history Medications and Allergies Allergies Allergy/AdvReac Type Severity Reaction Status Date / Time No Known Allergies Allergy Verified 10/01/20 13:40 Active Meds: Active Medications Acetaminophen (Acetaminophen 650 Mg Rect Supp) 650 mg MN Q4H PRN PRN Reason: Pain, Mild (1-3) Acetaminophen (Acetaminophen 325 Mg Tab) 650 mg PO Q6H PRN PRN Reason: Pain MILD(1-3)/Fever >100.5/BULLARD Al Hydrox/Mg Hydrox/Simethicone (Alum-Mag Hydroxide-Simethicone [id number]/5ml Oral Liqd 30 Ml) 30 ml PO Q4H PRN PRN Reason: Indigestion Atorvastatin Calcium (Atorvastatin 40 Mg Tab) 40 mg PO QHS NATASHA Bisacodyl (Bisacodyl 10 Mg Rect Supp) 10 mg MN QDAY PRN PRN Reason: Constipation unrelieved by MOM Dextrose (Dextrose 50% In Water (25gm) 50 Ml Syringe) 50 ml IV Q30MIN PRN; Protocol PRN Reason: Hypoglycemia Hydralazine HCl (Hydralazine 20 Mg/1 Ml Inj) 10 mg IV Q4H PRN PRN Reason: Hypertension Magnesium Hydroxide (Magnesium Hydroxide (Mom) Oral Liqd Udc) 30 ml PO Q4H PRN PRN Reason: Constipation Morphine Sulfate (Morphine 4 Mg/1 Ml Inj) 4 mg IV Q4H PRN PRN Reason: Pain , Severe (7-10) Morphine Sulfate (Morphine 2 Mg/1 Ml Inj) 2 mg IV Q4H PRN PRN Reason: Pain, Moderate (4-6) Last Admin: 10/03/20 00:23 Dose: 2 mg Documented by: Ondansetron HCl (Ondansetron 4 Mg/2 Ml Inj) 4 mg IV Q8H PRN PRN Reason: N/V unrelieved by Reglan Last Admin: 10/03/20 00:23 Dose: 4 mg Documented by: Promethazine HCl (Promethazine 25 Mg Rect Supp) 25 mg MN Q6H PRN PRN Reason: Nausea And Vomiting Senna (Sennosides 8.6 Mg Tab) 8.6 mg PO Q12H PRN PRN Reason: Laxative Effect Sodium Chloride (Sodium Chloride 0.9% 10 Ml Flush Syringe) 10 ml IV BID NATASHA Last Admin: 10/03/20 10:17 Dose: 10 ml Documented by: Sodium Chloride (Sodium Chloride 0.9% 10 Ml Flush Syringe) 10 ml IV PRN PRN PRN Reason: LINE FLUSH Physical Examination - Vital Signs Vital Signs: Vital Signs Temp Pulse Resp BP Pulse Ox 97.6 F 72 20 149/76 97 10/01/20 13:40 10/01/20 13:40 10/01/20 13:40 10/01/20 13:40 10/01/20 13:40 - Physical Exam Narrative exam: The patient was alert , moved all 4 extremities . Gait not tested. Results - Laboratory Findings CBC and BMP: 10/03/20 05:13 10/03/20 05:13 Abnormal Lab Findings: Abnormal Labs 10/01/20 10/02/20 10/02/20 14:10 05:12 10:11 WBC 3.3 L 3.1 L MCH 33 H 33 H MCHC 35 H 35 H RDW Lymph % (Auto) 39.1 H 43.1 H [place] % (Auto) 8.8 H 11.9 H Eos % (Auto) 4.5 H 8.0 H Seg Neutrophils % 36.2 L Seg Neutrophils # 1.5 L 1.1 L HDL Cholesterol 90 H 10/03/20 05:13 WBC 3.1 L MCH 33 H MCHC 35 H RDW 13.0 L Lymph % (Auto) [place] % (Auto) Eos % (Auto) Seg Neutrophils % Seg Neutrophils # HDL Cholesterol Assessment and Plan 1. Traumatic Frontal ICH - neurologically stable. 2. Reviewed NSG notes . Reviewed CT stable , Will Like to follow up out patient in 3 weeks ,consider low dose Keppra 250 mg at bed time on Discharge for ? Seizure Protection Dr. Ramakrishna DOMÍNGUEZ
--- NOTE | 2020-10-03 16:51 | Discharge Summary ---
Providers - Providers Date of Admission: 10/01/20 21:37 Date of discharge: 10/03/20 Attending physician: JENN PATEL 10/01/20 19:56 Consult to Physician [CONS] Stat Comment: Dr. Ramirez spoke with Dr. Cifuentes @ 1951 Consulting Provider: CHRIS CIFUENTES II Physician Instructions: Admit to this hospital, neuro check every 2 hours, Reason For Exam: Intracerebral hemorrhage 10/01/20 22:27 Consult to Dietitian/Nutrition [CONS] Routine Physician Instructions: Reason For Exam: Reason for Consult: Diet education Consult to Dietitian/Nutrition [CONS] Routine Physician Instructions: Reason For Exam: Reason for Consult: Nutrition Recommendations Reason for Consult: Diet education Occupational Therapy Evaluate and Treat [CONS] Routine Comment: Reason For Exam: Neuro deficits Physical Therapy Evaluation and Treat [CONS] Routine Comment: Reason For Exam: Neuro deficits Speech Therapy Evaluation and Treat [CONS] Routine Reason For Exam: CVA 10/02/20 Consult to Case Management [CONS] Routine Services Needed at Discharge: Home Health Services 10/02/20 04:37 Consult to Physician [CONS] Routine Comment: Consulting Provider: RAJESH AGUIRRE Physician Instructions: Reason For Exam: Intracerebral hemorrhage 10/02/20 08:59 Physical Therapy Evaluation and Treat [CONS] Routine Comment: Reason For Exam: Neuro deficits Primary care physician: RESOURCE PROGRAM TEACHER Hospitalization Condition: Stable Disposition: 06 HOME HEALTH CARE SERVICE Time spent for discharge: 34 minutes Core Measure Documentation - Palliative Care Palliative Care/ Comfort Measures: Not Applicable - Core Measures Any of the following diagnoses?: stroke - Stroke Discharge Requirements Statin for LDL = or >70 mg/dl on DC: Yes Anticoag for atrial fib/atrial flutter: Not Applicable Antithrombotic for ischemic stroke: No Reason for no antithrombotic on DC: Medical Contraindication Exam - Constitutional Vitals: Temp Pulse Resp BP Pulse Ox 98.4 F 64 19 144/71 99 10/03/20 07:53 10/03/20 14:28 10/03/20 14:28 10/03/20 14:28 10/03/20 14:28 Plan Activity: advance as tolerated Weight Bearing Status: Non-Weight Bearing Diet: low fat, low salt Additional Instructions: Follow-up with neurosurgery in 1 week Follow up with: PRIMARY CAREMD [Primary Care Provider] - 3-5 Days CHRIS CIFUENTES II, MD [Staff Physician] - 7 Days Prescriptions: AtorvaSTATin [Lipitor] 40 mg PO QHS #30 tablet levETIRAcetam [Keppra TAB] 250 mg PO BID #60 tablet
[2020-10-03] MEDS ORDERED: levETIRAcetam 500 MG TAB PO SCH (22:00)
--- NOTE | 2020-10-04 13:23 | Electrocardiograph Report ---
[facility] Test Date: 2020-10-01 Test Time: 13:57:18 Pat Name: CARLOS ALONSO Department: Room: [facility] Gender: F Logger: TV : 1940 Requested By: SARAH BAZZI Order Number: [id number] Reading MD: Fela Simental Measurements Intervals [place] Rate: 67 P: 42 [place]: 171 QRS: 10 QRSD: 78 T: 56 QT: 363 QTc: 383 Interpretive Statements Sinus rhythm No previous ECG available for comparison Electronically Signed On 10-04-2020 13:23:18 EDT by Fela Simental
== END 2020-10-04 08:00 | disposition home or self-care (01) | DRG 84 ==
LOC: ED 13:31 → CC1 21:37 → 4A 10-02 22:01
PROVIDERS: ADMIT Internal Medicine Geriatric Medicine; ATTEND Internal Medicine
DX: S06.359A Traumatic hemorrhage of left cerebrum with loss of consciousness of unspecified duration, initial encounter (principal); D72.819 Decreased white blood cell count, unspecified; Y93.89 Activity, other specified; Y99.8 Other external cause status; W18.39XA Other fall on same level, initial encounter; Y92.096 Garden or yard of other non-institutional residence as the place of occurrence of the external cause
CPT/HCPCS: 36415; 70450; 70496; 80048; 80061; 82962; 83036; 84484; 85025; 85027; 85610; 85670; 85730; 93005; 93306; 93880; G0378; A9270-GY; J2270; J2405; Q9967